=== PATIENT | female | born 1970 | race Caucasian/White ===

== ENCOUNTER 2020-06-17 13:58 | Emergency (ER) | payer OTHER ==
[~2020-06-17] VITALS: Ht 157.5 cm; Wt 74.8 kg
[2020-06-17] MEDS ORDERED: ACID REDUCER20 M1 PO (14:12)
[2020-06-17] MEDS ORDERED: JANUMET 50-5001 EACH PO (14:12)
[2020-06-17] MEDS ORDERED: SYNTHROID50 MCG PO (14:12)
[2020-06-17] MEDS ORDERED: DEPAKOTE ER500 MG PO (14:12)
[2020-06-17] MEDS ORDERED: FENOFIBRATE160 MG PO (14:13)
[2020-06-17] MEDS ORDERED: CYMBALTA60 MG PO (14:13)
[2020-06-17] MEDS ORDERED: ZOCOR20 MG PO (14:13)
== END 2020-06-17 21:44 | disposition home or self-care (01) ==
LOC: ER 13:58
DX: R59.0 Localized enlarged lymph nodes (principal); R10.2 Pelvic and perineal pain; R10.31 Right lower quadrant pain